=== PATIENT | male | born 2000 | race Caucasian/White ===

== ENCOUNTER 2019-01-23 03:36 | Emergency (ER) | payer OTHER ==
[2019-01-23 03:44] VITALS: BP 125/91
[2019-01-23] MEDS ORDERED: ACETAMINOPHEN 500 MG TAB PO ONE (03:54)
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
== END 2019-01-23 04:29 | disposition home or self-care (01) ==
DX: R68.84 Jaw pain (principal); F10.99 Alcohol use, unspecified with unspecified alcohol-induced disorder; Y04.8XXA Assault by other bodily force, initial encounter